=== PATIENT | male | born 1960 | race Caucasian/White ===

== ENCOUNTER 2023-12-29 09:58 | Outpatient (CLI) | payer BC, SELFPAY ==
[2023-12-29 10:37] LABS: ALT 23 U/L (16-63); AST 20 U/L (15-37); Alkaline Phosphatase 51 U/L (46-116); Anion Gap 7.6 mmol/L (3-11); BUN 18 mg/dL (7-18); Bilirubin, Total 1.44 mg/dL (0.2-1.0); CO2 28.4 mmol/L (21.0-32.0); CREATININE 1.1 mg/dL (0.70-1.30); Calcium 9.2 mg/dL (8.5-10.1); Calculated LDL 155 mg/dL (<100); Chloride 108 mmol/L (98-107); Cholesterol 243 mg/dL (<200); Estimated GFR 76.37 (mL/min/1.73m2); Glucose 97 mg/dL (74-106); HDL Cholesterol 80 mg/dL (40-60); Potassium 4.1 mmol/L (3.5-5.1); Sodium 144 mmol/L (136-145); TSH (W/Ref FT4) 1.72 uIU/mL (0.36-3.74); Total Protein 7.2 g/dL (6.4-8.2); Triglyceride 43 mg/dL (<150)
[2023-12-29 19:15] LABS: PSA, Screening <0.1 ng/mL (<=4.5)
== END 2023-12-29 09:59 | disposition home or self-care (01) ==
LOC: LBO 10:21
PROVIDERS: PCP Family Medicine; Visit Provider Family Medicine
DX: Z85.46 Personal history of malignant neoplasm of prostate (principal); E78.5 Hyperlipidemia, unspecified; E03.8 Other specified hypothyroidism; E06.3 Autoimmune thyroiditis
CPT/HCPCS: 36415; 80053; 80061; 84153; 84443

== ENCOUNTER 2025-01-01 12:52 | Outpatient (CLI) | payer BC, SELFPAY ==
[2025-01-01 13:06] LABS: TSH (W/Ref FT4) 1.50 uIU/mL (0.36-3.74)
[2025-01-02 09:25] LABS: PSA, Screening <0.1 ng/mL (<=4.5)
== END 2025-01-01 12:53 | disposition home or self-care (01) ==
LOC: LBO 12:52
PROVIDERS: PCP Family Medicine; Visit Provider Family Medicine
DX: E03.8 Other specified hypothyroidism (principal); E06.3 Autoimmune thyroiditis; C61 Malignant neoplasm of prostate
CPT/HCPCS: 36415; 84153; 84443